=== PATIENT | female | born 1955 | race Two or more races ===

== ENCOUNTER 2016-03-12 11:20 | Emergency (ER) | payer OTHER ==
[~2016-03-12] VITALS: Ht 154.9 cm; Wt 80.3 kg
[2016-03-12 11:20] VITALS: BP 143/83
[2016-03-12] MEDS ORDERED: LOSA25TA13 PO (11:33)
== END 2016-03-12 12:27 | disposition home or self-care (01) ==
LOC: ER 11:22
DX: M54.2 Cervicalgia (principal); S09.90XA Unspecified injury of head, initial encounter; I10 Essential (primary) hypertension; Z88.2 Allergy status to sulfonamides; W01.0XXA Fall on same level from slipping, tripping and stumbling without subsequent striking against object, initial encounter; Y92.89 Other specified places as the place of occurrence of the external cause; Y93.89 Activity, other specified; Y99.8 Other external cause status
CPT/HCPCS: A4606; Z7610